=== PATIENT | male | born 1960 | race Caucasian/White ===

== ENCOUNTER 2017-01-18 15:12 | Inpatient (IN) | payer OTHER ==
[2017-01-17 11:30] VITALS: BMI 26.0
[2017-01-18] VITALS (15 sets, daily range): BP systolic 100–144; BP diastolic 56–85; PULSE 66–95; RESP 10–20; Ht 175.3 cm; Wt 81.1 kg
[~2017-01-18] VITALS: Ht 175.3 cm; Wt 81.1 kg
[2017-01-18 16:12] LABS: BASOPHIL # 0.1 10^3/ul (0.0-0.1); BASOPHILS % 0.6 % (0.0-2.0); EOSINOPHILS # 0.3 10^3/ul (0.0-0.5); EOSINOPHILS % 3.6 % (0.0-7.0); HEMATOCRIT 47.8 % (42.0-52.0); HEMOGLOBIN 16.3 g/dl (14.0-18.0); LYMPHOCYTES # 1.9 10^3/ul (0.8-2.9); LYMPHOCYTES % 22.3 % (15.0-51.0); MEAN CORPUSCULAR HEMOGLOBIN 33.6 pg (29.0-33.0); MEAN CORPUSCULAR HGB CONC 34.1 g/dl (32.0-37.0); MEAN CORPUSCULAR VOLUME 98.6 fl (82.0-101.0); MEAN PLATELET VOLUME 9.8 fl (7.4-10.4); MONOCYTE # 0.7 10^3/ul (0.3-0.9); NEUTROPHIL # 5.6 10^3/ul (1.6-7.5); NEUTROPHILS % 65.2 % (39.0-77.0); PLATELET COUNT 273 10^3/UL (140-415); RED BLOOD COUNT 4.85 10^6/ul (4.70-6.10); RED CELL DISTRIBUTION WIDTH 14.8 % (11.5-14.5); WHITE BLOOD COUNT 8.6 10^3/ul (4.8-10.8)
[2017-01-18] MEDS ORDERED: LOSA50TA6 PO (16:15)
[2017-01-18 16:29] LABS: ADD UMIC YES; UR ASCORBIC ACID NEGATIVE (NEGATIVE); UR BILIRUBIN (Dip) NEGATIVE (NEGATIVE); UR BLOOD (Dip) NEGATIVE (NEGATIVE); UR CLARITY SLIGHTLY CLOUDY (CLEAR); UR COLOR AMBER (YELLOW); UR GLUCOSE (Dip) NEGATIVE (NEGATIVE); UR KETONES (Dip) NEGATIVE (NEGATIVE); UR LEUKOCYTE ESTERASE (Dip) NEGATIVE Leu/ul (NEGATIVE); UR MUCUS MANY /HPF (NONE SEEN); UR NITRITE (Dip) NEGATIVE (NEGATIVE); UR RBC 1 /HPF (0-5); UR SPECIFIC GRAVITY (Dip) 1.027 (1.003-1.030); UR SQUAMOUS EPITHELIAL CELL FEW /HPF (FEW); UR TOTAL PROTEIN (Dip) 1+ mg/dl (NEGATIVE); UR UROBILINOGEN (Dip) 1+ mg/dL (NEGATIVE)
[2017-01-18 16:30] LABS: INR 0.99; PROTIME 13.1 Sec (12.2-14.2)
[2017-01-18 16:31] LABS: PARTIAL THROMBOPLASTIN TIME 28.6 Sec (25.0-35.0)
[2017-01-18 16:40] LABS: CALCIUM 9.5 mg/dl (8.4-10.2); CREATININE 1.03 mg/dl (0.61-1.24)
[2017-01-18] MEDS ORDERED: PROPOFOL 20 ML ONE (17:32)
[2017-01-18] MEDS ORDERED: GLYCOPYRROLATE 0.4 MG INJ ONE (17:32)
[2017-01-18] MEDS ORDERED: LIDOCAINE 2% (SDV) 5 ML INJ ONE (17:32)
[2017-01-18] MEDS ORDERED: NEOSTIGMINE 3 MG/3 ML SYRINGE ONE (17:32)
[2017-01-18] MEDS ORDERED: SUCCINYLCHOLINE CHLORIDE 100 MG/5 ML SYG IV ONE (17:32)
[2017-01-18] MEDS ORDERED: ROCURONIUM 50 MG INJ ONE (17:32)
[2017-01-18] MEDS ORDERED: MEPERIDINE 100 MG INJ ONE (17:32)
--- NOTE | 2017-01-18 17:55 | HPN ---
Date/Time of Note Date/Time of Note DATE: 01/18/17 TIME: 17:55 Interval H&P Admission Note Pt. seen H&P reviewed: No system changes AMANDA RAMOS DPM Jan 18, 2017 17:55
[2017-01-18] MEDS ORDERED: POLYMYXIN B 500000 UNIT INJ ONE (18:14)
[2017-01-18] MEDS ORDERED: POLYMYXIN/BACITRACIN 1L IRRIG ONE (18:59)
[2017-01-18] MEDS ORDERED: BACITRACIN 50000 UNITS INJ ONE (18:59)
[2017-01-18] MEDS ORDERED: CEFAZOLIN 1 GM INJ ONE (19:49)
--- NOTE | 2017-01-18 20:51 | SIPON ---
Date/Time of Note Date/Time of Note DATE: 01/18/17 TIME: 20:45 Operative Report Preoperative Diagnosis CHARCOT FOOT DEFORMITY RIGHT FOOT CHRONIC ULCER RIGHT PLANTAR FOOT Postoperative Diagnosis CHARCOT FOOT DEFORMITY RIGHT FOOT PLANTAR RIGHT FOOT ULCER Operation/Procedure Performed ACHILLES TENDON LENGHTENING RIGHT FOOT EXOSTECTOMY WITH MUSCLE FLAP RIGHT FOOT Surgeon: AMANDA RAMOS DPM Co-Surgeon: TATY SEARS DPM Anesthesia Type: general Estimated Blood Loss: 0 - 10 ml's Transfusion Required: yes Specimens BONE RIGHT FOOT Grafts/Implants EPIFIX GRAFT Complications: no AMANDA RAMOS DPM Jan 18, 2017 20:51
[2017-01-18] MEDS ORDERED: ASPIRIN 81 MG TAB PO ONE (21:00)
[2017-01-18] MEDS ORDERED: LOPERAMIDE 2 MG CAP PO PRN (21:00)
[2017-01-18] MEDS ORDERED: ACETAMINOPHEN 500 MG TAB PO PRN (21:00)
[2017-01-18] MEDS: SENNA/DOCUSATE NA (8.6MG/50MG) TAB PO SCH (22:44)
[2017-01-18] MEDS: LACTATED RINGER'S 1,000 ML IV SCH (22:45)
[2017-01-18] MEDS: VANCOMYCIN 500MG/NS (PMX) 100 ML IVPB SCH (23:02)
[2017-01-18] MEDS ORDERED: ONDANSETRON 4 MG INJ IV PRN (23:30)
[2017-01-19 02:55] VITALS: BP 165/91; RESP 18
[2017-01-19] MEDS: morphine 4 MG/ML VIAL IV PRN ×2 (03:06→12:13)
[2017-01-19 05:58] LABS: BASOPHIL # 0.1 10^3/ul (0.0-0.1); BASOPHILS % 0.4 % (0.0-2.0); EOSINOPHILS # 0.2 10^3/ul (0.0-0.5); EOSINOPHILS % 1.6 % (0.0-7.0); HEMOGLOBIN 15.1 g/dl (14.0-18.0); LYMPHOCYTES # 1.7 10^3/ul (0.8-2.9); LYMPHOCYTES % 15.2 % (15.0-51.0); MEAN CORPUSCULAR HEMOGLOBIN 33.6 pg (29.0-33.0); MEAN CORPUSCULAR HGB CONC 34.3 g/dl (32.0-37.0); MEAN CORPUSCULAR VOLUME 97.8 fl (82.0-101.0); MEAN PLATELET VOLUME 10.2 fl (7.4-10.4); MONOCYTE # 0.9 10^3/ul (0.3-0.9); MONOCYTES % 7.5 % (0.0-11.0); NEUTROPHIL # 8.5 10^3/ul (1.6-7.5); NEUTROPHILS % 74.8 % (39.0-77.0); PLATELET COUNT 229 10^3/UL (140-415); RED CELL DISTRIBUTION WIDTH 14.6 % (11.5-14.5); WHITE BLOOD COUNT 11.3 10^3/ul (4.8-10.8)
[2017-01-19 06:35] LABS: ALBUMIN 3.3 g/dl (3.3-4.9); ALBUMIN/GLOBULIN RATIO 0.86; BILIRUBIN,INDIRECT 0.6 mg/dl (0-1.1); BILIRUBIN,TOTAL 0.6 mg/dl (0.2-1.3); CALCIUM 8.7 mg/dl (8.4-10.2); CREATININE 0.89 mg/dl (0.61-1.24); MAGNESIUM 1.7 mg/dl (1.7-2.5); PHOSPHORUS 3.6 mg/dl (2.5-4.9); POTASSIUM 4.2 mmol/L (3.5-5.1); TOTAL PROTEIN 7.1 g/dl (6.1-8.1)
[2017-01-19 08:00] VITALS: BP 129/79; RESP 20
[2017-01-19] MEDS: LACTATED RINGER'S 1,000 ML IV SCH ×2 (08:39→17:40)
[2017-01-19] MEDS: SENNA/DOCUSATE NA (8.6MG/50MG) TAB PO SCH ×2 (09:00→20:48)
[2017-01-19] MEDS: NICOTINE (21 MG/24 HR) PATCH TRANSDERM SCH (09:05)
[2017-01-19] MEDS: LOSARTAN 50 MG TAB PO SCH (09:05)
--- NOTE | 2017-01-19 09:32 | HP ---
Date/Time of Note Date/Time of Note DATE: 01/19/17 TIME: 09:26 Assessment/Plan VTE Prophylaxis VTE Prophylaxis Intervention: other Lines/Catheters IV Catheter Type (from Nrsg): Peripheral IV Assessment/Plan Assessment/Plan 1. Right Charcot foot, status post Achilles tendon lengthening and exostectomy with muscle flap -Continue pain medication -Management per podiatry -DVT prophylaxis also need to be addressed by podiatry 2. Hypertension -Continue home medications adjustment as needed 3. 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 He is now status post right Achilles tendon lengthening and exostectomy with muscle flap of the right foot. Currently, he is feeling well and does not have any complaints. Denied chest pain, shortness of breath, fever or chills. PMH/Family/Social Social History Smoking Status: Current every day smoker Exam/Review of Systems Vital Signs Vitals Vital Signs Date Time Temp Pulse Resp B/P Pulse Ox O2 Delivery O2 Flow Rate FiO2 01/19/17 08:00 99.0 82 20 129/79 96 01/18/17 21:27 Room Air Intake and Output 01/18/17 01/18/17 01/19/17 15:00 23:00 07:00 Intake Total 350 ml 1550 ml Output Total 5 ml 650 ml Balance 345 ml 900 ml Exam Constitutional: alert, oriented, well developed Head: atraumatic, normocephalic Eyes: EOMI, PERRL Respiratory: clear to auscultation, normal air movement Cardiovascular: nl pulses, regular rate and rhythm Gastrointestinal: non-tender, soft Extremities: other (Right lower extremity including foot is covered. Patient has very minimal sensation at his toes, the patient is chronic) Labs Result Diagram: 01/19/17 0503 01/19/17 0503 Medications Medications Current Medications Vancomycin HCl (Vancocin) 100 ml @ 100 mls/hr Q12H IVPB Last administered on t 23:02; Admin Dose 100 MLS/HR; Start 01/18/17 at 21:00; Stop 01/19/17 at 09:59 Senna/Docusate Sodium (Senokot-S) 1 tab BID PO Last administered on 01/19/17 09:00; Admin Dose 1 TAB; Start 01/18/17 at 21:00 Acetaminophen (Tylenol Tab) 1,000 mg Q4H PRN PO PAIN LEVEL 1-5; Start 01/18/17 at 21:00 Loperamide HCl 2 mg 2 mg Q6H PRN PO DIARRHEA; Start 01/18/17 at 21:00 Lactated Ringer's (Lr) 1,000 ml @ 100 mls/hr Q10H IV Last administered on 01/19 08:39; Admin Dose 100 MLS/HR; Start 01/18/17 at 20:34 Morphine Sulfate (morphine) 3 mg Q4H PRN IV PAIN LEVEL 7-10 Last administered on 01/19/17 03:06; Admin Dose 3 MG; Start 01/18/17 at 23:30 Ondansetron HCl (Zofran Inj) 4 mg Q6H PRN IV NAUSEA AND/OR VOMITING; Start at 23:30 Losartan Potassium (Cozaar) 50 mg DAILY PO Last administered on 01/19/17 09:05 ; Admin Dose 50 MG; Start 01/19/17 at 09:00 Nicotine (Nicoderm 21 Mg/ 24hr) 1 patch DAILY TRANSDERM Last administered on 09:05; Admin Dose 1 PATCH; Start 01/19/17 at 09:00 SRIRAM RAY MD Jan 19, 2017 09:32
[2017-01-19] MEDS: VANCOMYCIN 500MG/NS (PMX) 100 ML IVPB SCH (10:37)
[2017-01-19 14:00] VITALS: BP 127/97; RESP 18
--- NOTE | 2017-01-19 14:26 | PN ---
Date/Time of Note Date/Time of Note DATE: 01/19/17 TIME: 14:22 Assessment/Plan VTE Prophylaxis VTE Prophylaxis Intervention: ambulation Lines/Catheters IV Catheter Type (from Nrsg): Saline Lock Assessment/Plan Chief Complaint/Hosp Course 1. Right Charcot foot deformity, status post Achilles tendon lengthening and exostectomy with muscle flap 01/18/17 -Continue post op weightbearing per podiatry -Continue pain medication -DVT prophylaxis also need to be addressed by podiatry 2. Hypertension. stable. -Continue home medications 3. Nicotine dependence -on nicotine patch -Cessation advised 4.Mild leukocytosis. No fevers. -Continue abx. Monitor. PLAN:F/u with podiatry regarding DC plan. patient was seen in collaboration with . Problems: Subjective 24 Hr Interval Summary Free Text/Dictation no fever.Pain controlled. had PT eval. Exam/Review of Systems Vital Signs Vitals Vital Signs Date Time Temp Pulse Resp B/P Pulse Ox O2 Delivery O2 Flow Rate FiO2 01/19/17 08:00 99.0 82 20 129/79 96 01/18/17 21:27 Room Air Intake and Output 01/18/17 01/18/17 01/19/17 15:00 23:00 07:00 Intake Total 350 ml 1550 ml Output Total 5 ml 650 ml Balance 345 ml 900 ml Exam General: Well developed, female, not in any acute distress . HEENT: Normocephalic, Atraumatic, No laceration or hematoma; Eyes: PEERL, Conjunctiva clear, Anicteric sclera Neck: Supple without any lymphadenopathy, nontender, no JVD, no carotid bruits, trachea midline, no thyromegaly Cardiac: S1, S2 auscultated, regular rhythm and rate, no mumurs or gallop Pulmonary: Normal respiratory effort. Chest clear to auscultation bilaterally, no adventitious breath sounds GI: Abdomen normal to inspection. Soft, non- distended, no masses, no rebound tenderness or guarding. Bowel sounds active on all four quadrants Genitourinary: Deferred Extremities: Right LE in Cast. No cyanosis, clubbing, or edema. Pulses [2+] bilaterally. Full ROM on all four extremities. No focal weakness appreciated. Neurologic: Alert to person, place, time, and situation. Affect appropriate, intact sensation. Skin: Clean,dry, and intact. No ecchymosis, no rashes, or lesions Results Result Diagram: 01/19/17 0503 01/19/17 0503 Results 24 hrs Laboratory Tests Test 01/18/17 16:00 01/19/17 05:03 White Blood Count 8.6 11.3 #H Red Blood Count 4.85 4.50 L Hemoglobin 16.3 15.1 Hematocrit 47.8 44.0 Mean Corpuscular Volume 98.6 97.8 Mean Corpuscular Hemoglobin 33.6 H 33.6 H Mean Corpuscular Hemoglobin Concent 34.1 34.3 Red Cell Distribution Width 14.8 H 14.6 H Platelet Count 273 229 Mean Platelet Volume 9.8 10.2 Neutrophils % 65.2 74.8 Lymphocytes % 22.3 15.2 Monocytes % 8.0 7.5 Eosinophils % 3.6 1.6 Basophils % 0.6 0.4 Nucleated Red Blood Cells % 0.0 0.0 Neutrophils # 5.6 8.5 H Lymphocytes # 1.9 1.7 Monocytes # 0.7 0.9 Eosinophils # 0.3 0.2 Basophils # 0.1 0.1 Nucleated Red Blood Cells # 0.0 0.0 Prothrombin Time 13.1 Prothrombin Time Ratio 1.0 INR International Normalized Ratio 0.99 Activated Partial Thromboplast Time 28.6 Urine Color VALENTIN Urine Clarity SLIGHTLY CLOUDY A Urine pH 5.0 Urine Specific [place] 1.027 Urine Ketones NEGATIVE Urine Nitrite NEGATIVE Urine Bilirubin NEGATIVE Urine Urobilinogen 1+ H Urine Leukocyte Esterase NEGATIVE Urine Microscopic RBC 1 Urine Microscopic WBC 4 Urine Squamous Epithelial Cells FEW Urine Mucus MANY A Urine Hemoglobin NEGATIVE Urine Glucose NEGATIVE Urine Total Protein 1+ H Sodium Level 139 135 Potassium Level 4.0 4.2 Chloride Level 104 104 Carbon Dioxide Level 28 25 Anion Gap 11 10 Blood Urea Nitrogen 14 11 Creatinine 1.03 0.89 Glucose Level 106 88 Calcium Level 9.5 8.7 Phosphorus Level 3.6 Magnesium Level 1.7 Total Bilirubin 0.6 Direct Bilirubin 0.00 Indirect Bilirubin 0.6 Aspartate Amino Transf (AST/SGOT) 21 Alanine Aminotransferase (ALT/SGPT) 27 Alkaline Phosphatase 171 H Total Protein 7.1 Albumin 3.3 Globulin 3.80 H Albumin/Globulin Ratio 0.86 Medications Medications Current Medications Senna/Docusate Sodium (Senokot-S) 1 tab BID PO Last administered on 01/19/17 09:00; Admin Dose 1 TAB; Start 01/18/17 at 21:00 Acetaminophen (Tylenol Tab) 1,000 mg Q4H PRN PO PAIN LEVEL 1-5; Start 01/18/17 at 21:00 Loperamide HCl 2 mg 2 mg Q6H PRN PO DIARRHEA; Start 01/18/17 at 21:00 Lactated Ringer's (Lr) 1,000 ml @ 100 mls/hr Q10H IV Last administered on 01/19 08:39; Admin Dose 100 MLS/HR; Start 01/18/17 at 20:34 Morphine Sulfate (morphine) 3 mg Q4H PRN IV PAIN LEVEL 7-10 Last administered on 01/19/17 12:13; Admin Dose 3 MG; Start 01/18/17 at 23:30 Ondansetron HCl (Zofran Inj) 4 mg Q6H PRN IV NAUSEA AND/OR VOMITING; Start at 23:30 Losartan Potassium (Cozaar) 50 mg DAILY PO Last administered on 01/19/17 09:05 ; Admin Dose 50 MG; Start 01/19/17 at 09:00 Nicotine (Nicoderm 21 Mg/ 24hr) 1 patch DAILY TRANSDERM Last administered on 09:05; Admin Dose 1 PATCH; Start 01/19/17 at 09:00 RODRIGO INMAN NP Jan 19, 2017 14:26
[2017-01-19 21:06] VITALS: BP 136/80; RESP 18
[2017-01-20 02:39] VITALS: BP 136/74; RESP 18
[2017-01-20] MEDS: LACTATED RINGER'S 1,000 ML IV SCH (03:22)
[2017-01-20 05:58] LABS: BASOPHIL # 0.1 10^3/ul (0.0-0.1); BASOPHILS % 0.5 % (0.0-2.0); EOSINOPHILS # 0.2 10^3/ul (0.0-0.5); EOSINOPHILS % 2.5 % (0.0-7.0); HEMATOCRIT 44.8 % (42.0-52.0); LYMPHOCYTES # 1.9 10^3/ul (0.8-2.9); LYMPHOCYTES % 20.8 % (15.0-51.0); MEAN CORPUSCULAR HGB CONC 33.5 g/dl (32.0-37.0); MEAN CORPUSCULAR VOLUME 98.7 fl (82.0-101.0); MEAN PLATELET VOLUME 10.3 fl (7.4-10.4); MONOCYTE # 0.9 10^3/ul (0.3-0.9); MONOCYTES % 10.1 % (0.0-11.0); NEUTROPHIL # 6.1 10^3/ul (1.6-7.5); NEUTROPHILS % 65.8 % (39.0-77.0); PLATELET COUNT 222 10^3/UL (140-415); RED BLOOD COUNT 4.54 10^6/ul (4.70-6.10); RED CELL DISTRIBUTION WIDTH 14.4 % (11.5-14.5); WHITE BLOOD COUNT 9.3 10^3/ul (4.8-10.8)
[2017-01-20 06:26] LABS: CALCIUM 8.9 mg/dl (8.4-10.2); CREATININE 0.83 mg/dl (0.61-1.24); POTASSIUM 3.9 mmol/L (3.5-5.1)
[2017-01-20] MEDS: morphine 4 MG/ML VIAL IV PRN ×2 (07:42→20:55)
[2017-01-20 08:00] VITALS: BP 146/85; RESP 20
[2017-01-20] MEDS: SENNA/DOCUSATE NA (8.6MG/50MG) TAB PO SCH ×2 (08:15→20:54)
[2017-01-20] MEDS: NICOTINE (21 MG/24 HR) PATCH TRANSDERM SCH (08:15)
[2017-01-20] MEDS: LOSARTAN 50 MG TAB PO SCH (08:15)
--- NOTE | 2017-01-20 11:33 | OPR ---
DATE OF OPERATION: 01/18/2017 SURGEON: Abraham Fleming DPM. EQUITIES TRADER: Merrill Wilder DPM. ANESTHESIOLOGIST: Lenin Mccoy MD. ANESTHESIA: General. PREOPERATIVE DIAGNOSES: 1. Charcot deformity, right foot. 2. Chronic ulcer, plantar, right foot. POSTOPERATIVE DIAGNOSIS: 1. Charcot deformity, right foot. 2. Chronic right foot ulcer, with a chronic right plantar foot ulcer. OPERATION PERFORMED: 1. Tendo Achilles lengthening, right leg. 2. Resection of exostosis, plantar, right foot. 3. Flexor digitorum brevis muscle flap, plantar, right foot. OPERATIVE PROCEDURE: The patient was brought into the operating room, placed in a secure prone position. The patient was administered general anesthesia. A thigh tourniquet was utilized. The right foot and leg were prepped and draped in the usual sterile manner. The thigh tourniquet was then inflated to 300 mmHg. Procedure #1 was then performed: Tendo Achilles lengthening of the right leg. A 5 cm incision was placed along the midline posterior leg over the Achilles tendon. The incision was deepened. Superficial bleeders were cauterized and bovied as necessary. A linear incision was then placed over the paratenon of the right leg Achilles tendon. The paratenon was resected medially and laterally. The Achilles tendon was then exposed. Utilizing a #15 scalpel, a Z-lengthening tendo Achilles lengthening was performed. The length of the longitudinal arm of the Z was 1 cm. Once the Z-incision was placed over the Achilles tendon, the foot was dorsiflexed and lengthening was produced of the Achilles tendon. Using a 2.0 FiberWire, the Achilles tendon was sutured. Good approximation and strength was noted upon suturing the Achilles tendon. The area was copiously irrigated with bacitracin mixed with sterile saline. Next, the paratenon was sutured with 4-0 Vicryl running interlocking stitch. The subcutaneous tissue was closed with 4-0 nylon simple interrupted stitches and the skin edges were reapproximated with a running Prolene stitch. We now turned our attention to the plantar surface of the right foot. There is a 2.5 cm x 3.0 cm plantar wound. The wound margins were debrided of necrotic and callus tissues down to fresh bleeding tissue. The flexor digitorum brevis muscle belly was identified by extending the incision from the wound distally just proximal to the sulcus and the incision was again undermined to expose the flexor digitorum brevis muscle and its tendons. Each tendon to the digit was identified and the muscle was carefully reflected proximally, exposing the underlying prominent exostosis. The exostosis was removed with an osteotome and mallet. Next, the area was rasped smooth. No sharp edges or prominences were noted plantarly. The area again was irrigated with Pulsavac, antibiotic solution and saline. One L solution was utilized. The bone was sent for culture. At this time, the muscle flap was sutured to the surrounding skin with 3-0 Vicryl simple interrupted stitches. The distal incision was closed with 4-0 Vicryl simple interrupted sutures and the skin edges were reapproximated with 2-0 nylon simple interrupted sutures. It should be noted also that EpiFix was placed directly over the bone, as well as over the muscle belly to facilitate healing and wound closure. The wound was then dressed with Xeroform gauze followed by 4 x 4 gauze, 4-inch Kerlix roll. The ankle pneumatic tourniquet was deflated. Good capillary filling time was noted to all digits. Good bleeding tissue was seen. No vascular compromise was noted. The below-knee cast was applied with the foot at 90 degrees to the leg, with fiberglass cast. Patient will be admitted for 24-hour observation. No intraoperative complications were encountered. Patient tolerated the above procedure well, left the OR with vital signs stable and satisfactory. Dictated By: Abraham Fleming DPM /jason/osiris /Document#: [id number]
--- NOTE | 2017-01-20 11:33 | PN ---
Date/Time of Note Date/Time of Note DATE: 01/20/17 TIME: 11:27 Assessment/Plan VTE Prophylaxis VTE Prophylaxis Intervention: ambulation Lines/Catheters IV Catheter Type (from Nrsg): Peripheral IV Assessment/Plan Chief Complaint/Hosp Course 1. Right Charcot foot deformity, status post Achilles tendon lengthening and exostectomy with muscle flap 01/18/17 -Continue post op weightbearing per podiatry- currently no weight bearing on RLE -Continue pain medication -DVT prophylaxis also need to be addressed by podiatry 2. Hypertension. stable. -Continue home medications 3. Nicotine dependence -on nicotine patch -Cessation advised 4.Mild leukocytosis,likely reactive. resolved. -Continue abx. Monitor. PLAN: ID eval per podiatry recs. Will f/u. Disp: As per PT eval, patient stable for outpatient HHPT with crutches. patient was seen in collaboration with . Problems: Subjective 24 Hr Interval Summary Free Text/Dictation No acute overnight episodes. had PT and recommended crutches and HHPT Exam/Review of Systems Vital Signs Vitals Vital Signs Date Time Temp Pulse Resp B/P Pulse Ox O2 Delivery O2 Flow Rate FiO2 01/20/17 08:00 98.0 97 20 146/85 96 01/18/17 21:27 Room Air Intake and Output 01/19/17 01/19/17 01/20/17 15:00 23:00 07:00 Intake Total 450 ml 1640 ml 2150 ml Output Total 1000 ml 1450 ml Balance 450 ml 640 ml 700 ml Exam General: Well developed, female, not in any acute distress . HEENT: Normocephalic, Atraumatic, No laceration or hematoma; Eyes: PEERL, Conjunctiva clear, Anicteric sclera Neck: Supple without any lymphadenopathy, nontender, no JVD, no carotid bruits, trachea midline, no thyromegaly Cardiac: S1, S2 auscultated, regular rhythm and rate, no mumurs or gallop Pulmonary: Normal respiratory effort. Chest clear to auscultation bilaterally, no adventitious breath sounds GI: Abdomen normal to inspection. Soft, non- distended, no masses, no rebound tenderness or guarding. Bowel sounds active on all four quadrants Genitourinary: Deferred Extremities: Right LE in Cast. No cyanosis, clubbing, or edema. Pulses [2+] bilaterally. Full ROM on all four extremities. No focal weakness appreciated. Neurologic: Alert to person, place, time, and situation. Affect appropriate, intact sensation. Skin: Clean,dry, and intact. No ecchymosis, no rashes, or lesions Results Result Diagram: 01/20/17 0458 01/20/17 0458 Results 24 hrs Laboratory Tests Test 01/20/17 04:58 White Blood Count 9.3 Red Blood Count 4.54 L Hemoglobin 15.0 Hematocrit 44.8 Mean Corpuscular Volume 98.7 Mean Corpuscular Hemoglobin 33.0 Mean Corpuscular Hemoglobin Concent 33.5 Red Cell Distribution Width 14.4 Platelet Count 222 Mean Platelet Volume 10.3 Neutrophils % 65.8 Lymphocytes % 20.8 Monocytes % 10.1 Eosinophils % 2.5 Basophils % 0.5 Nucleated Red Blood Cells % 0.0 Neutrophils # 6.1 Lymphocytes # 1.9 Monocytes # 0.9 Eosinophils # 0.2 Basophils # 0.1 Nucleated Red Blood Cells # 0.0 Sodium Level 134 L Potassium Level 3.9 Chloride Level 101 Carbon Dioxide Level 27 Anion Gap 10 Blood Urea Nitrogen 8 Creatinine 0.83 Glucose Level 79 Calcium Level 8.9 Medications Medications Current Medications Senna/Docusate Sodium (Senokot-S) 1 tab BID PO Last administered on 01/20/17 08:15; Admin Dose 1 TAB; Start 01/18/17 at 21:00 Acetaminophen (Tylenol Tab) 1,000 mg Q4H PRN PO PAIN LEVEL 1-5; Start 01/18/17 at 21:00 Loperamide HCl 2 mg 2 mg Q6H PRN PO DIARRHEA; Start 01/18/17 at 21:00 Lactated Ringer's (Lr) 1,000 ml @ 100 mls/hr Q10H IV Last administered on 01/20 03:22; Admin Dose 100 MLS/HR; Start 01/18/17 at 20:34 Morphine Sulfate (morphine) 3 mg Q4H PRN IV PAIN LEVEL 7-10 Last administered on 01/20/17 07:42; Admin Dose 3 MG; Start 01/18/17 at 23:30 Ondansetron HCl (Zofran Inj) 4 mg Q6H PRN IV NAUSEA AND/OR VOMITING; Start at 23:30 Losartan Potassium (Cozaar) 50 mg DAILY PO Last administered on 01/20/17 08:15 ; Admin Dose 50 MG; Start 01/19/17 at 09:00 Nicotine (Nicoderm 21 Mg/ 24hr) 1 patch DAILY TRANSDERM Last administered on 08:15; Admin Dose 1 PATCH; Start 01/19/17 at 09:00 RODRIGO INMAN NP Jan 20, 2017 11:33
[2017-01-20 14:00] VITALS: BP 139/75; RESP 20
[2017-01-20 20:27] VITALS: BP 125/77; RESP 18
[2017-01-21 03:12] VITALS: BP 117/75; RESP 18
[2017-01-21 06:15] LABS: BASOPHIL # 0.1 10^3/ul (0.0-0.1); BASOPHILS % 0.7 % (0.0-2.0); EOSINOPHILS # 0.3 10^3/ul (0.0-0.5); EOSINOPHILS % 4.2 % (0.0-7.0); HEMATOCRIT 47.6 % (42.0-52.0); HEMOGLOBIN 15.9 g/dl (14.0-18.0); LYMPHOCYTES # 1.9 10^3/ul (0.8-2.9); LYMPHOCYTES % 25.2 % (15.0-51.0); MEAN CORPUSCULAR HEMOGLOBIN 33.1 pg (29.0-33.0); MEAN CORPUSCULAR HGB CONC 33.4 g/dl (32.0-37.0); MEAN CORPUSCULAR VOLUME 99.2 fl (82.0-101.0); MEAN PLATELET VOLUME 10.4 fl (7.4-10.4); MONOCYTE # 0.8 10^3/ul (0.3-0.9); MONOCYTES % 10.3 % (0.0-11.0); NEUTROPHIL # 4.4 10^3/ul (1.6-7.5); NEUTROPHILS % 59.2 % (39.0-77.0); PLATELET COUNT 243 10^3/UL (140-415); RED CELL DISTRIBUTION WIDTH 14.5 % (11.5-14.5); WHITE BLOOD COUNT 7.5 10^3/ul (4.8-10.8)
[2017-01-21 06:49] LABS: CALCIUM 9.4 mg/dl (8.4-10.2); CREATININE 0.9 mg/dl (0.61-1.24); POTASSIUM 5.2 mmol/L (3.5-5.1)
[2017-01-21 08:09] VITALS: BP 123/73; RESP 20
[2017-01-21] MEDS: LOSARTAN 50 MG TAB PO SCH (08:38)
[2017-01-21] MEDS: SENNA/DOCUSATE NA (8.6MG/50MG) TAB PO SCH (08:38)
[2017-01-21] MEDS: NICOTINE (21 MG/24 HR) PATCH TRANSDERM SCH (08:39)
--- NOTE | 2017-01-21 11:47 | DS ---
Date/Time of Note Date/Time of Note DATE: 01/21/17 TIME: 11:45 Discharge Summary Admission/Discharge Info Admit Date/Time Jan 20, 2017 at 11:42 Discharge Date/Time January 21, 2017 Discharge Diagnosis Charcot foot with foot ulcer requiring Achilles tendon lengthening. Patient Condition: Fair Consults Infectious disease; podiatry; hospitalist internal medicine Procedures PREOPERATIVE DIAGNOSES: 1. Charcot deformity, right foot. 2. Chronic ulcer, plantar, right foot. POSTOPERATIVE DIAGNOSIS: 1. Charcot deformity, right foot. 2. Chronic right foot ulcer, with a chronic right plantar foot ulcer. OPERATION PERFORMED: 1. Tendo Achilles lengthening, right leg. 2. Resection of exostosis, plantar, right foot. 3. Flexor digitorum brevis muscle flap, plantar, right foot. 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 He is now status post right Achilles tendon lengthening and exostectomy with muscle flap of the right foot. Currently, he is feeling well and does not have any complaints. Denied chest pain, shortness of breath, fever or chills. Hospital Course 1. Right Charcot foot deformity, status post Achilles tendon lengthening and exostectomy with muscle flap 01/18/17 -Continue post op weightbearing per podiatry- currently no weight bearing on RLE -Continue pain medication -DVT prophylaxis also need to be addressed by podiatry 2. Hypertension. stable. -Continue home medications 3. Nicotine dependence -on nicotine patch -Cessation advised 4.Mild leukocytosis,likely reactive. resolved. -Continue abx. Monitor. PLAN: ID eval per podiatry recs. Will f/u. Disp: As per PT eval, patient stable for outpatient HHPT with crutches. patient was seen in collaboration with . Patient is stable postoperative. I have contacted Dr. Corona who has reviewed the case. There is no evidence of infection or other indication to start antibiotics. As such the patient is stable for discharge at this time. 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0-33.0) Mean Corpuscular Hemoglobin Concent 33.4g/dl (32.0-37.0) Red Cell Distribution Width 14.5% (11.5-14.5) Platelet Count 69266^3/UL (140-415) Mean Platelet Volume 10.4fl (7.4-10.4) Neutrophils % 59.2% (39.0-77.0) Lymphocytes % 25.2% (15.0-51.0) Monocytes % 10.3% (0.0-11.0) Eosinophils % 4.2% (0.0-7.0) Basophils % 0.7% (0.0-2.0) Nucleated Red Blood Cells % 0.0/100WBC (0.0-0.0) Neutrophils # 4.410^3/ul (1.6-7.5) Lymphocytes # 1.910^3/ul (0.8-2.9) Monocytes # 0.810^3/ul (0.3-0.9) Eosinophils # 0.310^3/ul (0.0-0.5) Basophils # 0.110^3/ul (0.0-0.1) Nucleated Red Blood Cells # 0.010^3/ul (0.0-0.0) Sodium Level 137mmol/L (135-144) Potassium Level 5.2mmol/L (3.5-5.1) Chloride Level 104mmol/L (97-110) Carbon Dioxide Level 27mmol/L (21-31) Anion Gap 11 (8-16) Blood Urea Nitrogen 8mg/dl (7-20) Creatinine 0.90mg/dl (0.61-1.24) Glucose Level 84mg/dl (70-220) Calcium Level 9.4mg/dl (8.4-10.2) DEN JIMENEZ MD Jan 21, 2017 11:47
--- NOTE | 2017-01-21 11:48 | PDOCDIS ---
Discharge Instructions DIAGNOSIS Discharge Diagnosis Charcot foot with foot ulcer requiring Achilles tendon lengthening. CONDITION Patient Condition: Fair HOME CARE INSTRUCTIONS: Special Diet: regular ACTIVITY: Activity Restrictions: Slowly Increase Activity Avoid heavy lifting Do not operate Machinery Do not operate Power Tool FOLLOW UP/APPOINTMENTS Follow-up Plan Podiatry in 1 week internal medicine in 3 weeks SCHOOL/WORK RELEASE May return to School/Work with: With Restrictions DEN JIMENEZ MD Jan 21, 2017 11:48
--- NOTE | 2017-01-21 16:05 | CONS ---
DATE OF ADMISSION: 01/20/2017 DATE OF CONSULTATION: 01/20/2017 REASON FOR CONSULTATION: Antibiotic management. CHIEF COMPLAINT: Brian Sawant is a 57-year-old male with numerous problems who comes in now with a right Charcot foot, and is being seen for antibiotic management. PROBLEM LIST: 1. Hypertension. 2. Probable alcohol-related cirrhosis. 3. Charcot foot on the right. He was admitted for surgical intervention by Podiatry. He is now status post right Achilles tendon lengthening and exostectomy with muscle flap on the right foot. He denies any other complaints. PAST MEDICAL AND SURGICAL HISTORY: As outlined. FAMILY HISTORY: Noncontributory. SOCIAL HISTORY: He smokes every day, does not drink or abuse drugs. ALLERGIES: NONE TO PENICILLIN, SULFA, OR FOODS. MEDICATIONS: Per chart. REVIEW OF SYSTEMS: Noncontributory. LABORATORY: On admission, his white count was 11.3, H and H of 15.1 and 44, platelet count 229,000. BUN and creatinine 11/0.89. Random glucose was 88. BUN and creatinine as noted. Patient was started initially on vancomycin. 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 He had a Charcot deformity of the right foot, chronic right foot ulcer with a chronic right plantar foot ulcer. Operation performed on the was a tendo-Achilles lengthening, resection of exostosis plantar right foot, and flexor digitorum brevis muscle flap plantar right foot. On the , he had a mild leukocytosis. PHYSICAL EXAMINATION: GENERAL: Patient is a well-developed, well-nourished male who is awake, responsive, in no acute distress. VITAL SIGNS: Stable. He is afebrile. SKIN: Without generalized rash. HEENT: Within normal limits. NECK: Supple. Lymph nodes nonpalpable. CHEST: Decreased breath sounds at the bases. HEART: Without murmur or gallop. ABDOMEN: Soft, nontender without organosplenomegaly or masses. EXTREMITIES: He has a right lower extremity cast. There is no evidence of cyanosis, clubbing or edema. RECTAL: Deferred. GENITOURINARY: Deferred. NEUROLOGICAL: No focal neurological abnormalities. IMPRESSION: Patient is currently on no antibiotic therapy. A Gram stain of the foot shows no organisms, 1 plus epithelial cells. Will continue him off antibiotics for the time being. I will dictate my findings to the hospitalist and also to Dr. Fleming. Dictated By: Chevy Corona MD JD/jason/casper /Document#: [id number]
== END 2017-01-21 14:06 | disposition home health service (06) | DRG 42 ==
LOC: EDSEX 15:12 → SDS 15:12 → PP2 21:33 → OBSVTOIN 01-20 11:42
PROVIDERS: ADMIT Internal Medicine; ATTEND Internal Medicine
PROC: 0QBN0ZZ Excision of Right Metatarsal, Open Approach (ICD-10-PCS; 2017-01-18)
PROC: 0KXV0ZZ Transfer Right Foot Muscle, Open Approach (ICD-10-PCS; 2017-01-18)
PROC: 0L8S0ZZ Division of Right Ankle Tendon, Open Approach (ICD-10-PCS; principal; 2017-01-18 17:30)
DX: A52.16 Charcot's arthropathy (tabetic) (principal); E83.52 Hypercalcemia; K70.30 Alcoholic cirrhosis of liver without ascites; I10 Essential (primary) hypertension; F17.200 Nicotine dependence, unspecified, uncomplicated; D72.829 Elevated white blood cell count, unspecified; E78.5 Hyperlipidemia, unspecified; G60.9 Hereditary and idiopathic neuropathy, unspecified; L97.519 Non-pressure chronic ulcer of other part of right foot with unspecified severity; M89.9 Disorder of bone, unspecified; F10.20 Alcohol dependence, uncomplicated
CPT/HCPCS: 80048; 80053; 81001; 83735; 84100; 85025; 85610; 85730; 87070; 88304; 97116; 97162; 97530; G0378; J0690; J2175; J2270; J2710; J3370; J7120; J7999; Q4131

== ENCOUNTER 2017-02-02 14:13 | Outpatient (CLI) | payer OTHER ==
[~2017-02-02] VITALS: Ht 175.3 cm; Wt 76.8 kg
[~2017-02-02 14:13] MED LIST: LOSA50TA6 PO
[2017-02-02 14:34] VITALS: Ht 175.3 cm; Wt 76.8 kg
[2017-02-02 14:35] VITALS: BP 114/70; PULSE 76; RESP 18
--- NOTE | 2017-02-02 14:42 | PN ---
Date/Time of Note Date/Time of Note DATE: 02/02/17 TIME: 14:37 Outpatient Progress Note Chief Complaint Charcot foot/cirrhosis/hypertension HPI Charcot foot/patient Charcot foot, and had ulcer, and patient had surgery, patient had a chylous tendon lengthening on the right leg, and resection of the exostosis on the plantar right foot, and also fracture digitorum brevis muscle flap, plantar on the right foot, Patient has a dressing change yesterday, patient cast was removed yesterday, patient was seen by podiatry yesterday, and patient is seeing again in few days , no fever chill, no bleeding or discharge, Cirrhosis/no nausea vomiting, no ascites, no hematemesis melena, patient has not been drinking for last 2 months, Hypertension/no headache or dizziness, blood pressure stable, Review of Systems Const: No Fever, no chills, no Wt. loss, no Fatigue, normal appetite, no diaphoresis. Eyes: No pain, no discharge, no redness, no visual change, no foreign body. ENT: No pain, no bleeding, no congestion, no sore throat, no dysphagia, no discharge or rhinitis. Lymph: No adenopathy, no tender nodes, no lymphedema. Resp: No SOB, no cough, no sputum, no wheezing, no chest pain. CV: No chest pain, no palpitaions, no PEREZ, no PND, no edema. GI: Normal appetite, no pain, no nausea, no vomiting, no diarrhea, no blood, no constipation. : No frequency, no urgency, no dysuria, no hematuria, no flank pain, no discharge, no bleeding. Musc: Right foot surgery, and pain, no back pain, no neck pain, no knee pain, no restricted ROM. Skin: No rash, no skin lesions, no erythema, no laceration, no bruising, no pruritus. Neuro: No FRY, no dizziness, no syncope, no seizure, no focal-weakness. Endo: No polyuria, no polydypsia, no dry-skin, no temp-intolerance. Psych: No hallucinations, no depression, no anxiety, no suicidal ideation. Ext: No edema, no pain, no ulcer, no weakness right foot surgery, and cast removal, dressing changed,. Physical Exam Vital Signs Date Time Temp Pulse Resp B/P Pulse Ox O2 Delivery O2 Flow Rate FiO2 02/02/17 14:35 97.5 76 18 114/70 97 Room Air General Appearance: A 57 year-old male who appears well-developed, well- nourished, in no acute distress. HEENT: Head normocephalic, atraumatic. Pupils equal, round, reactive to light and accommodate. Sclerae are no jaundice. Nasal turbinates pink without erythema or nasal discharge. Mucous membranes pink and moist without lesions. Oropharynx clear without any exudate or discharge. NECK: Supple. Trachea midline, No thyromegaly, No cervical lymphadenopathy, No mass, No carotid bruits, No JVD, Carotid pulses 2+ bilaterally. PULMONARY: Clear to auscultaion bilaterally, No retractions, Chest expansion symmetric bilaterally, no rales, no ronchi, no dulness on percussion. CARDIAC: Normal SI and S2, Regular rate and rythm, no murmur, gallop, or rub. GASTROINTESTINAL: Abdomen is soft, non-tender, Non Rigid, No distention, Positive bowel sounds x4 quadrants, Liver normal. SKIN: Warm, dry, no rash, no bruise, no echmosis. EXTREMITIES: Bilateral lower extremities, no edema, patient had right foot surgery, no phlabitus, pulse palpable, no contracture. MUSCULOSKELETAL: Spine Normal, Non-tender, Normal range of motion, No swelling, no deformity, no clubbing, or cyanosis, the patient has no edema to bilateral lower extremities, dorsalis pedis pulses palpable bilaterally. NEUROLOGIC: The patient is awake, alert, oriented, responding to yes/no questions appropriately, moving all extremities, cranial nerve intact, normal strenght, normal power, normal coordination, normal gait. Allergies Coded Allergies: No Known Allergy (Unverified , 01/18/17) PMH Charcot foot/ulcer/status post surgery Cirrhosis Hypertension Social Hx Patient still smoke 3-4 cigarettes a day, patient used to smoke 1 pack per day, for many years Patient stopped drinking 2 months ago, Family Hx Noncontributory Assessment/Plan Impression Status post Charcot foot surgery Cirrhosis Hypertension Nicotine dependency Plan Patient education done about hypertension and cirrhosis, Patient has no fever chill, has no pain in the right leg, patient dressing was changed yesterday, patient to follow with podiatry, Patient educated to follow with the primary care physician, Continue all other medication, and refrain from smoking and drinking, discussed with the patient, patient education done, Medications Home Meds Reported Medications Losartan Potassium* (Losartan Potassium*) 50 Mg Tablet, 50 MG PO DAILY, TAB 01/18/17 VIOLETA HARPER MD Feb 02, 2017 14:42
== END 2017-02-02 17:00 | disposition home or self-care (01) ==
LOC: DCC 14:13
PROVIDERS: ATTEND Internal Medicine
DX: M14.671 Charcot's joint, right ankle and foot (principal); L97.519 Non-pressure chronic ulcer of other part of right foot with unspecified severity; K74.60 Unspecified cirrhosis of liver; I10 Essential (primary) hypertension; Z72.0 Tobacco use
CPT/HCPCS: G0463

== ENCOUNTER 2017-03-08 06:31 | Day surgery (SDC) | payer OTHER ==
[~2017-03-08] VITALS: Ht 175.3 cm; Wt 79.4 kg
[2017-03-08] VITALS (11 sets, daily range): BP systolic 122–156; BP diastolic 63–86; PULSE 77–90; RESP 12–22; Ht 175.3 cm; Wt 79.4 kg
[2017-03-08] MEDS ORDERED: EPHEDrine SULFATE 50 MG/5 ML SYG ONE (07:00)
[2017-03-08] MEDS ORDERED: PROCHLORPERAZINE 10 MG INJ IV PRN (07:30)
[2017-03-08] MEDS ORDERED: DIPHENHYDRAMINE 50 MG INJ IV PRN (07:30)
[2017-03-08] MEDS ORDERED: MEPERIDINE 25 MG INJ IV PRN (07:30)
[2017-03-08] MEDS ORDERED: FENTAnyl 50 MCG/ML VIAL IV PRN (07:30)
[2017-03-08] MEDS ORDERED: HYDROmorphONE (0.2 MG/ML) 10ML SYG IV PRN (07:30)
[2017-03-08] MEDS ORDERED: OXYCODONE/ACETAMINOPHEN (5/325) TAB PO PRN (07:30)
[2017-03-08] MEDS ORDERED: hydrALAzine 20 MG INJ IV PRN (07:30)
[2017-03-08] MEDS ORDERED: LABETALOL HCL 20MG INJ IV PRN (07:30)
[2017-03-08] MEDS ORDERED: ONDANSETRON 4 MG INJ IV PRN (07:30)
[2017-03-08] MEDS ORDERED: PROPOFOL 20 ML ONE (07:39)
[2017-03-08] MEDS ORDERED: LIDOCAINE 2% (SDV) 5 ML INJ ONE (07:39)
[2017-03-08] MEDS ORDERED: MIDAZOLAM 1 MG/ML 2 ML INJ ONE (07:39)
--- NOTE | 2017-03-08 08:07 | HPN ---
Date/Time of Note Date/Time of Note DATE: 03/08/17 TIME: 08:06 Interval H&P Admission Note Pt. seen H&P reviewed: No system changes AMANDA RAMOS DPM Mar 08, 2017 08:07
[2017-03-08] MEDS ORDERED: CEFAZOLIN 1 GM INJ ONE (08:19)
[2017-03-08] MEDS ORDERED: FENTAnyl 50 MCG/ML VIAL ONE (08:20)
[2017-03-08] MEDS ORDERED: DEXAMETHASONE 4 MG/ML 1 ML INJ ONE (08:23)
[2017-03-08] MEDS ORDERED: METOCLOPRAMIDE 10 MG INJ ONE (08:23)
[2017-03-08] MEDS ORDERED: ONDANSETRON 4 MG INJ ONE (08:23)
[2017-03-08] MEDS ORDERED: MINERAL OIL LIGHT 10 ML VIAL ONE (08:27)
[2017-03-08] MEDS ORDERED: BUPIVACAINE 0.5% (SDV) 30 ML INJ ONE (08:27)
[2017-03-08] MEDS ORDERED: THROMBIN 5000 UNIT VIAL ONE (08:27)
[2017-03-08] MEDS ORDERED: LIDOCAINE 2%/EPI 30 ML INJ ONE (08:28)
[2017-03-08] MEDS ORDERED: HYDROCODONE/APAP (10/325) TAB PO PRN (10:00)
--- NOTE | 2017-03-13 15:39 | OPR ---
DATE OF OPERATION: 03/08/2017 SURGEON: Abraham Fleming DPM. ASSISTANCE SURGEON: Merrill Wilder DPM ANESTHESIOLOGIST: Jennifer Guerrier MD ANESTHESIA: General. PREOPERATIVE DIAGNOSIS: Chronic right plantar foot ulcer. POSTOPERATIVE DIAGNOSIS: Chronic right plantar foot ulcer. OPERATION PERFORMED: 1. Split-thickness skin graft, right plantar foot wound. 2. Harvesting of recipient site, plantar right foot wound. OPERATIVE PROCEDURE: The patient was brought into the operating room, placed on the table in a secure supine position. Cardiac monitoring and IV sedation and an ankle pneumatic tourniquet were utilized for this case. Preoperatively, a total of 20 mL of 0.5 percent Marcaine plain were infiltrated surrounding the lower leg at the donor site of the skin graft in the form of a regional block. Upon achieving anesthesia, the right foot and leg were prepped and draped with Betadine and the ankle tourniquet was not utilized for this case. We now turned our attention to the donor site, right distal leg. Using a number 2 dermatome, the skin graft was harvested from the lateral aspect of the right lower leg. The skin graft was meshed and applied over the wound which was debrided and prepped for recipient of the split-thickness skin graft. The graft was secured with 4-0 Vicryl simple interrupted sutures. The dressing at the donor site consisted of 4 x 4, soaked with thrombin. The dressing at the plantar foot wound was with Xeroform gauze, 4 x 4 gauze, 4 inch Kerlix roll, and 4 inch Coban to semi-compressive dressing. A posterior splint was applied to the right foot and leg. The patient tolerated the above procedure well, left the OR with vital signs stable and satisfactory. No intraoperative complications were encountered. Patient tolerated the above procedure well. The patient will follow up one week postop. Dictated By: Abraham Fleming DPM /jason/[email or web address] /Document#: [id number]
== END 2017-03-08 11:00 | disposition home or self-care (01) ==
LOC: SDS 06:31
PROVIDERS: ATTEND Podiatrist Primary Podiatric Medicine
DX: L97.519 Non-pressure chronic ulcer of other part of right foot with unspecified severity (principal); I10 Essential (primary) hypertension
CPT/HCPCS: 15120; 80048; 85025; 85610; 85730; J0690; J1100; J2250; J2405; J2765; J3010; Z7512; Z7610

== ENCOUNTER 2017-09-12 18:31 | Inpatient (IN) | END 2017-09-27 20:27 | DRG 854 ==